=== PATIENT | male | born 1950 | race African-American/Black ===

== ENCOUNTER 2019-03-12 19:15 | Emergency (ER) | payer MEDICARE, MEDICAID ==
[2019-03-12] VITALS (7 sets, daily range): BP systolic 130–135; BP diastolic 72–75
[~2019-03-12] VITALS: Ht 167.6 cm; Wt 63.5 kg
--- NOTE | 2019-03-12 19:15 | NUR ---
ED Nurse Note: Patient was BIBA from parking lot. Patient presented resstless, agitated, skreaming out loud, keep saying" leave me alone", AAO x1, VSS at this time, skin is warm to touch.
--- NOTE | 2019-03-12 20:13 | NUR ---
ED Nurse Note: Patient is so agitated, refusing any care.
[2019-03-12] MEDS ORDERED: Haloperidol 5mg/ml Inj IM ONE (20:45)
[2019-03-12] MEDS ORDERED: DiphenhydrAMINE 50mg/ml Inj IM ONE (20:45)
--- NOTE | 2019-03-12 21:05 | Emergency Room Report ---
History of Present Illness General Chief Complaint: Altered Level of Consciousness Present Illness HPI Patient is a 68-year-old male who presents for increased altered level of consciousness. Patient was brought in by EMS. History is markedly limited by patient's poor cooperation. (Cristo Coreas MD) Allergies: Coded Allergies: UNABLE TO ASSESS (Unverified , 03/12/19) A&O1; UNWILLING TO RESPOND Patient History Past Medical History: see triage record Reviewed Nursing Documentation: PMH: Agreed; PSxH: Agreed (Cristo Coreas MD) Nursing Documentation-PMH Past Medical History Deferred: Pt Cognitively Impaired (Cristo Coreas MD) Review of Systems All Other Systems: limited - Limited by poor historian (Cristo Coreas MD) Physical Exam Vital Signs Date Time Temp Pulse Resp B/P (MAP) Pulse Ox O2 Delivery O2 Flow Rate FiO2 03/12/19 19:01 69 16 116/77 (90) 98 Room Air Sp02 EP Interpretation: reviewed, normal General Appearance: normal inspection, well appearing, no apparent distress, alert Head: atraumatic ENT: normal ENT inspection, hearing grossly normal, normal voice Neck: normal inspection, full range of motion, supple, no bony tend Respiratory: normal inspection, lungs clear, normal breath sounds, no respiratory distress, no retraction, no wheezing Cardiovascular #1: regular rate, rhythm, no edema Gastrointestinal: normal inspection, normal bowel sounds, non tender, soft, no guarding, no hernia Genitourinary: no CVA tenderness Musculoskeletal: normal inspection, back normal, normal range of motion Neurologic: alert, motor strength/tone normal, responsive, speech normal, normal inspection Psychiatric: normal inspection, judgement/insight normal, mood/affect normal (Cristo Coreas MD) Medical Decision Making Restraint Attestation I, Cristo Coreas MD, have personally evaluated this patient. Laboratory tests have been reviewed and addressed accordingly. The patient is deemed to present a danger to themselves and/or others. This is based on the exam, history ( provided by patient, EMS/[facility] and/or family) and observed or reported behavior. Attempts for non-invasive measures have been considered and/or attempted, however, have been futile. It is in the best interest of the nursing staff, the patient, and others involved in this patient's care that behavioral restraints be applied. Patient evaluation reveals the following: Markedly elevated to patient attempted to strike nursing staff and actually spit at the nurse as well. Patient had attempted to be verbally redirected without any success. (Cristo Coreas MD) Homeless Attestation I, The treating physician Dr. Gloria, have assessed and agrees that patient is medically stable for discharge to an outpatient disposition. (Hung Gloria MD) Diagnostic Impression: Primary Impression: Altered mental status Additional Impression: Alcohol intoxication Qualified Codes: F10.920 - Alcohol use, unspecified with intoxication, uncomplicated ER Course Patient presented with altered mental status. Differential diagnosis included but was not limited to ischemic stroke, subarachnoid hemorrhage, hypoglycemia, spinal cord injury, neurodegenerative disorder, urinary tract infection, hypoxemia. Because of complexity of patient's case laboratory tests and imaging studies were ordered.Patient was noted to have some evidence of alteration of mental status. He appears to be somewhat intoxicated. Patient became threatening toward nursing staff attempted to subsequently placed in restraints. He was given Haldol as well as Benadryl due to agitation.Patient endorsed to Dr. Gloria pending reassessment.Patient does not appear to be have capacity to care for himself at the time of initial assessment (Cristo Coreas MD) ER Course Reevaluation 5:57 AM, patient states he is thankful he is no longer suicidal He states he feels fine and wants to leave He states last night he drank a little too much Disposition home with return precautions (Hung Gloria MD) Last Vital Signs Date Time Temp Pulse Resp B/P (MAP) Pulse Ox O2 Delivery O2 Flow Rate FiO2 03/12/19 19:30 69 16 Room Air 03/12/19 19:01 116/77 (90) 98 (Cristo Coreas MD) Disposition: HOME, SELF-CARE Condition: Stable Referrals: [facility] Patient Instructions: Alcohol Intoxication, [id number], Self-Destructive Behavior Additional Instructions: The patient was provided with discharge instructions, notified to follow-up with a primary care doctor and or specialist in the next 24-48 hours, and to return to the ED if they have worsening of their symptoms. Please note that this report is being documented using [employer] technology. This can lead to erroneous entry secondary to incorrect interpretation by the dictating instrument. Cristo Coreas MD Mar 12, 2019 21:05 Hung Gloria MD Mar 13, 2019 05:59
[2019-03-12] MEDS ORDERED: LORazepam Inj 2mg/ml 1ml IM ONE (22:00)
--- NOTE | 2019-03-12 22:23 | NUR ---
Constantly screeming, moved to single room(7). Yelling "help"-would not comprehend.
--- NOTE | 2019-03-12 22:45 | NUR ---
ED Nurse Note: Patient's behavioral restrains were DC, due to patient is calm, cooperative.
[2019-03-13 01:36] VITALS: BP 134/74
--- NOTE | 2019-03-13 02:57 | NUR ---
ED Nurse Note: Patient is in the room, sleeping, calm and cooperative, VSS at this time.
[2019-03-13 06:20] VITALS: BP 134/74
--- NOTE | 2019-03-13 06:31 | NUR ---
ED Nurse Note: Pt cleared by health care Provider for discharge. DC instructions/prescription was given and explained to pt and verbalized understanding of teachings. All medical deviecs such as ID band removed. Pt is AAO x4, ambulatory and left with all personal belongings.
== END 2019-03-13 06:20 | disposition home or self-care (01) ==
LOC: EDBD 19:15 → EMR 22:27
DX: F10.129 Alcohol abuse with intoxication, unspecified (principal); R41.82 Altered mental status, unspecified
CPT/HCPCS: 96372; 99283; J1200; J1630